=== PATIENT | female | born 1955 | race Asian ===

== ENCOUNTER 2024-04-07 16:40 | Emergency (ER) | payer OTHER ==
[~2024-04-07] VITALS: Ht 165.1 cm; Wt 87.1 kg
[2024-04-07 17:13] VITALS: BP 114/57; PULSE 90; RESP 18; TEMP 98.2; O2SAT 98
[2024-04-07] MEDS: KETOROLAC 30 MG/ML VIAL IM ONE (18:12)
[2024-04-07 19:11] VITALS: BP 114/57; PULSE 90; RESP 18; TEMP 98.2; O2SAT 98
== END 2024-04-07 19:11 | disposition home or self-care (01) ==
LOC: MED 16:40
DX: S20.213A Contusion of bilateral front wall of thorax, initial encounter (principal); E11.9 Type 2 diabetes mellitus without complications; Z88.6 Allergy status to analgesic agent; V89.2XXA Person injured in unspecified motor-vehicle accident, traffic, initial encounter; Y93.89 Activity, other specified; Y92.89 Other specified places as the place of occurrence of the external cause; Y99.8 Other external cause status
CPT/HCPCS: 71045; 96372; 99283; J1885